=== PATIENT | female | born 1935 | race Caucasian/White ===

== ENCOUNTER 2018-05-20 11:19 | Emergency (ER) | payer MEDICARE, BC ==
[~2018-05-20] VITALS: Ht 162.6 cm; Wt 75.0 kg
[2018-05-20 11:23] VITALS: Ht 162.6 cm; Wt 75.0 kg
[2018-05-20] MEDS ORDERED: BYSTOLIC10 MG PO (11:26)
[2018-05-20 12:32] LABS: APPEARANCE SL CLDY (CLEAR); BACTERIA MANY /hpf (NONE SEEN); BILIRUBIN NEGATIVE (NEGATIVE); COLOR STRAW (YELLOW); GLUCOSE NEGATIVE (NEGATIVE); KETONE NEGATIVE (NEGATIVE); MUCUS <1+ /lpf (NONE SEEN); NITRITE NEGATIVE (NEGATIVE); PROTEIN NEGATIVE (NEGATIVE); SPECIFIC GRAVITY 1.015 (1.005-1.020); UROBILINOGEN NORMAL (NORMAL); WHITE CELLS - URINE 0-5 /hpf (0-5)
[2018-05-20 12:41] LABS: BASOPHILS 0.2 % (0-2); EOSINOPHILS 1.1 % (0-7); HEMATOCRIT 44.6 % (36.0-48.0); HEMOGLOBIN 14.7 g/dL (12-16); LYMPHOCYTES 14.7 % (15-50); MCH 29.8 pg (26.0-34.0); MCV 90.3 fL (80.0-100.0); MEAN PLATELET VOLUME 10.7 fL (7.4-10.4); MONOCYTES 8.5 % (2-11); NEUTROPHILS 75.5 % (40-80); PLATELET COUNT 197 10x3/uL (130-400); RBC 4.94 10x6/uL (4.00-5.40); WBC 6.6 10x3/uL (4.8-10.8)
[2018-05-20 13:13] LABS: ALBUMIN 3.9 g/dL (3.4-5.0); BILIRUBIN - TOTAL 0.52 mg/dL (0.2-1.3); CALCIUM 9.6 mg/dL (8.5-10.1); CARBON DIOXIDE 31.3 mmol/L (21.0-32.0); CREATININE - SERUM 0.9 mg/dL (0.6-1.3); POTASSIUM - SERUM 4.3 mmol/L (3.5-5.1); PROTEIN - SERUM 7.3 g/dL (6.4-8.2)
[2018-05-20] MEDS ORDERED: IBUPROFEN800 MG PO (16:33)
[2018-05-20] MEDS ORDERED: ACETAMINOPHEN500 M1 PO (16:33)
[2018-05-20] MEDS ORDERED: CYCLOBENZAPRINE10 MG PO (16:33)
[2018-05-20 17:41] VITALS: BP 152/76
== END 2018-05-20 17:43 | disposition home or self-care (01) ==
LOC: D.ER 11:19
PROVIDERS: Family Medicine
DX: M79.661 Pain in right lower leg (principal); S90.31XA Contusion of right foot, initial encounter; X58.XXXA Exposure to other specified factors, initial encounter; Y93.89 Activity, other specified; Y92.019 Unspecified place in single-family (private) house as the place of occurrence of the external cause; M79.1 Myalgia; E11.9 Type 2 diabetes mellitus without complications; I10 Essential (primary) hypertension